=== PATIENT | female | born 2000 | race Hispanic/Latino ===

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

== ENCOUNTER 2021-04-01 20:12 | Emergency (ER) | payer SELFPAY | END 2021-04-01 20:51 | disposition home or self-care (01) | LOC: ERS 20:12 | DX: H92.03 Otalgia, bilateral (principal) | CPT/HCPCS: 99282 ==